=== PATIENT | male | born 1995 | race Two or more races ===

== ENCOUNTER 2021-05-08 10:27 | Outpatient (REF) | payer OTHER, SELFPAY ==
[2021-05-08 13:06] LABS: Binax Now Covid-19 Ag Positive (Negative)
[2021-05-08 13:07] LABS: Binax Internal Control QC Valid
== END 2021-05-08 10:28 | disposition home or self-care (01) ==
LOC: HO.LAB 10:27
PROVIDERS: Visit Provider Internal Medicine
DX: Z20.822 Contact with and (suspected) exposure to COVID-19 (principal)
CPT/HCPCS: 36415; C9803